=== PATIENT | male | born 1950 | race Two or more races ===

== ENCOUNTER 2023-08-26 16:08 | Inpatient (IN) | payer MEDICARE, MEDICAID ==
[~2023-08-26] VITALS: Ht 175.3 cm; Wt 64.1 kg
[2023-08-26] MEDS ORDERED: SODIUM CHLORIDE 0.9% 1,000 ML IV ONE ×2 (17:00)
[2023-08-26 17:18] LABS: BASOPHILS % (AUTO) 0.3 % (0.0-2.0); EOSINOPHILS % (AUTO) 1.2 % (1.0-6.0); HEMATOCRIT 34.9 % (41-53); HEMOGLOBIN 11.9 g/dL (13.5-17.5); LYMPHOCYTES # (AUTO) 0.9 K/uL (1.0-4.8); LYMPHOCYTES % (AUTO) 18.4 % (22.0-44.0); MEAN CORPUSCULAR HEMOGLOBIN 33.5 pg (26.0-34.0); MEAN CORPUSCULAR VOLUME 99 fL (80-100); MONOCYTES # (AUTO) 0.3 K/uL (0.1-1.0); MONOCYTES % (AUTO) 5.7 % (2.0-9.0); NEUTROPHILS # (AUTO) 3.8 K/uL (1.8-7.7); NEUTROPHILS % (AUTO) 74.4 % (40.0-70.0); PLATELET COUNT (AUTO) 132 K/uL (150-450); RED BLOOD CELL COUNT(AUTO) 3.54 MIL/uL (4.50-5.90); WHITE BLOOD COUNT (AUTO) 5.1 K/uL (4.5-11.0)
[2023-08-26 17:27] LABS: CALCIUM, TOTAL 9.3 mg/dL (8.8-10.5); CARBON DIOXIDE 28 mmol/L (22-29); CHLORIDE 102 mmol/L (98-107); GLOMERULAR FILTR. RATE CALC > 60 mL/min (>60); GLUCOSE,RANDOM 97 mg/dL (70-110); UREA NITROGEN, BLOOD 19 mg/dL (7-18)
[2023-08-26] MEDS ORDERED: ACETAMINOPHEN 325 MG TABLET PO PRN (17:30)
[2023-08-26] MEDS ORDERED: MAGNESIUM HYDROXIDE SUSPENSION 30 ML UDCUP PO PRN (17:30)
[2023-08-26 17:32] LABS: B-TYPE NATRIURETIC PEPTIDE 74 pg/mL (0-100)
[2023-08-26 17:33] LABS: ALANINE AMINOTRANSFERASE 24 U/L (12-78); ALBUMIN 3.6 g/dL (3.4-5.0); ALKALINE PHOSPHATASE 75 U/L (46-116); ASPARTATE AMINOTRANSFERASE 17 U/L (15-37); BILIRUBIN,TOTAL 0.6 mg/dL (0.1-1.0); LIPASE 38 U/L (16-77); TOTAL PROTEIN, SERUM 6.9 g/dL (6.4-8.2)
[2023-08-26 17:35] LABS: LACTIC ACID 0.6 mmol/L (0.4-2.0); TROPONIN I-HIGH SENSITIVITY 74 ng/L (<76)
[2023-08-26 17:36] LABS: COVID AG,FIA SOURCE NASAL SWAB
[2023-08-26 17:42] LABS: ANION GAP 8 mmol/L (8-16); SODIUM SERUM 138 mmol/L (136-145)
[2023-08-26 17:52] LABS: SARS-COV2 (COVID) ANTIGEN,FIA Negative (Negative)
[2023-08-26] MEDS: FAMOTIDINE 20 MG TABLET PO SCH (21:00)
[2023-08-26 21:42] VITALS: BP 123/77; PULSE 85; RESP 20; TEMP 98.2
[2023-08-27] VITALS (7 sets, daily range): BP systolic 105–128; BP diastolic 66–76; PULSE 65–87; RESP 16–19; TEMP 97.6–98.4
[2023-08-27] MEDS: HEPARIN SODIUM,PORCINE 5,000 UNITS/ML VIAL SQ SCH ×3 (00:11→16:13)
[2023-08-27 00:38] LABS: APPEARANCE,URINE CLEAR (CLEAR); BILIRUBIN,URINE NEGATIVE (NEGATIVE); COLOR,URINE LIGHT YELLOW (YELLOW); GLUCOSE, URINE (UA) NEGATIVE (NEGATIVE); KETONES,URINE NEGATIVE (NEGATIVE); LEUKOCYTE ESTERASE ,URINE NEGATIVE (NEGATIVE); NITRATE,URINE NEGATIVE (NEGATIVE); OCCULT BLOOD,URINE NEGATIVE (NEGATIVE); PH,URINE 6.5 (5.0-8.0); PROTEIN,URINE NEGATIVE (NEGATIVE); SPECIFIC GRAVITIY, URINE 1.013 (1.003-1.030); UROBILINOGEN,URINE <=1.0 mg/dL (<=1.0)
[2023-08-27] MEDS: FAMOTIDINE 20 MG TABLET PO SCH ×2 (08:31→20:00)
[2023-08-27] MEDS: ASPIRIN 81 MG CHEWABLE TABLET PO SCH (08:31)
[2023-08-28] MEDS: HEPARIN SODIUM,PORCINE 5,000 UNITS/ML VIAL SQ SCH ×3 (00:40→16:07)
[2023-08-28 05:07] VITALS: BP 130/77; PULSE 85; RESP 18; TEMP 98.2
[2023-08-28 07:26] VITALS: BP 123/79; PULSE 85; RESP 20; TEMP 97.5
[2023-08-28] MEDS: FAMOTIDINE 20 MG TABLET PO SCH (08:18)
[2023-08-28] MEDS: ASPIRIN 81 MG CHEWABLE TABLET PO SCH (08:19)
[2023-08-28 16:16] VITALS: BP 121/76; PULSE 86; RESP 20; TEMP 98.4
== END 2023-08-28 17:17 | disposition home or self-care (01) | DRG 315 ==
LOC: EMS 16:10 → 5S 18:26 → 6S 08-27 20:46
PROVIDERS: ADMIT Internal Medicine; ATTEND Internal Medicine
DX: I95.9 Hypotension, unspecified (principal); E44.0 Moderate protein-calorie malnutrition; T50.995A Adverse effect of other drugs, medicaments and biological substances, initial encounter; F03.90 Unspecified dementia, unspecified severity, without behavioral disturbance, psychotic disturbance, mood disturbance, and anxiety; Z20.822 Contact with and (suspected) exposure to COVID-19; R62.7 Adult failure to thrive; Z95.0 Presence of cardiac pacemaker; Z68.20 Body mass index [BMI] 20.0-20.9, adult
CPT/HCPCS: 70450; 71045; 80053; 81003; 83605; 83690; 83880; 84484; 85025; 87040; 93005; 97116; 97162; 99285; J1644; 36415-L1; 36415-TC

== ENCOUNTER 2023-08-28 21:09 | Inpatient (IN) | payer MEDICARE, MEDICAID ==
[~2023-08-28] VITALS: Ht 172.7 cm; Wt 62.0 kg
[2023-08-28] MEDS ORDERED: LORazepam 2 MG/ML VIAL IVP ONE (22:00)
[2023-08-28] MEDS ORDERED: 0.9% SODIUM CHLORIDE 10 ML SYRINGE IVP PRN (22:15)
[2023-08-28 22:42] LABS: BASOPHILS % (AUTO) 0.1 % (0.0-2.0); EOSINOPHILS % (AUTO) 0.3 % (1.0-6.0); HEMOGLOBIN 10.9 g/dL (13.5-17.5); LYMPHOCYTES # (AUTO) 1.3 K/uL (1.0-4.8); LYMPHOCYTES % (AUTO) 19.7 % (22.0-44.0); MEAN CORPUSCULAR HEMOGLOBIN 33.4 pg (26.0-34.0); MEAN CORPUSCULAR HGB CONC 33.9 G/dL (31.0-37.0); MEAN CORPUSCULAR VOLUME 98 fL (80-100); MONOCYTES # (AUTO) 0.5 K/uL (0.1-1.0); MONOCYTES % (AUTO) 7.8 % (2.0-9.0); NEUTROPHILS # (AUTO) 4.6 K/uL (1.8-7.7); NEUTROPHILS % (AUTO) 72.1 % (40.0-70.0); PLATELET COUNT (AUTO) 130 K/uL (150-450); RED BLOOD CELL COUNT(AUTO) 3.26 MIL/uL (4.50-5.90); RED CELL DISTRIBUTION WIDTH 12.9 % (11.5-14.5); WHITE BLOOD COUNT (AUTO) 6.4 K/uL (4.5-11.0)
[2023-08-28 22:48] LABS: ANION GAP 10 mmol/L (8-16); CALCIUM, TOTAL 9.4 mg/dL (8.8-10.5); CARBON DIOXIDE 25 mmol/L (22-29); CHLORIDE 104 mmol/L (98-107); CREATININE 1.18 mg/dL (0.60-1.30); GLOMERULAR FILTR. RATE CALC > 60 mL/min (>60); GLUCOSE,RANDOM 96 mg/dL (70-110); POTASSIUM 3.1 mmol/L (3.5-5.1); SODIUM SERUM 139 mmol/L (136-145); UREA NITROGEN, BLOOD 22 mg/dL (7-18)
[2023-08-28 22:53] LABS: B-TYPE NATRIURETIC PEPTIDE 132 pg/mL (0-100)
[2023-08-28 22:55] LABS: ALANINE AMINOTRANSFERASE 26 U/L (12-78); ALBUMIN 3.4 g/dL (3.4-5.0); ALKALINE PHOSPHATASE 71 U/L (46-116); ASPARTATE AMINOTRANSFERASE 22 U/L (15-37); BILIRUBIN,TOTAL 0.7 mg/dL (0.1-1.0); CREATINE KINASE, TOTAL ONLY 172 U/L (39-308); TOTAL PROTEIN, SERUM 6.8 g/dL (6.4-8.2)
[2023-08-28 22:56] LABS: LACTIC ACID 1.9 mmol/L (0.4-2.0); TROPONIN I-HIGH SENSITIVITY 68 ng/L (<76)
[2023-08-28] MEDS ORDERED: HALOPERIDOL 5 MG TABLET PO ONE (23:30)
[2023-08-29] MEDS ORDERED: CefTRIAXone 1 GM/DEXTROSE 50 ML IV ONE
[2023-08-29] MEDS ORDERED: SODIUM CHLORIDE 0.9% 500 ML IV ONE
[2023-08-29] MEDS ORDERED: POTASSIUM CHLORIDE 10% 40 MEQ/30 ML LIQUID UDCUP PO ONE
[2023-08-29] MEDS ORDERED: ONDANSETRON HCL 4 MG/2 ML VIAL IVP PRN
[2023-08-29] MEDS ORDERED: SODIUM CHLORIDE 0.9% 100 ML ONE (00:12)
[2023-08-29] MEDS ORDERED: IOHEXOL 350 MG/ML 100 ML VIAL ONE (00:12)
[2023-08-29] MEDS ORDERED: MAGNESIUM SULFATE 4 GM/WATER 100 ML IV PRN (00:15)
[2023-08-29] MEDS ORDERED: POTASSIUM CHL 10 MEQ/WATER 50 ML IV PRN (00:15)
[2023-08-29] MEDS ORDERED: POTASSIUM CHLORIDE 20 MEQ ER TABLET PO PRN (00:15)
[2023-08-29] MEDS ORDERED: MAGNESIUM SULFATE 2 GM/WATER 50 ML IV PRN (00:15)
[2023-08-29] MEDS ORDERED: MAGNESIUM OXIDE 400 MG TABLET PO PRN (00:15)
[2023-08-29] MEDS: RINGERS SOLUTION,LACTATED 1,000 ML IV SCH ×2 (00:34→17:48)
[2023-08-29] MEDS: HEPARIN SODIUM,PORCINE 5,000 UNITS/ML VIAL SQ SCH ×2 (00:35→08:00)
[2023-08-29 01:07] LABS: % IRON SATURATION 26.4 % (30-44)
[2023-08-29 02:20] VITALS: BP 110/69; PULSE 85; RESP 18; TEMP 97.8
[2023-08-29] MEDS: AZITHROMYCIN 500 MG/NS 250 ML IV SCH (02:42)
[2023-08-29 06:34] LABS: TROPONIN I-HIGH SENSITIVITY 65 ng/L (<76)
[2023-08-29 07:25] VITALS: BP 132/89; PULSE 86; RESP 20; TEMP 97.3
[2023-08-29 07:49] LABS: COVID AG,FIA SOURCE NASAL SWAB
[2023-08-29 08:27] LABS: SARS-COV2 (COVID) ANTIGEN,FIA Negative (Negative)
[2023-08-29] MEDS: DOCUSATE SODIUM 100 MG CAPSULE PO SCH ×2 (09:00→20:28)
[2023-08-29 09:28] LABS: TROPONIN I-HIGH SENSITIVITY 66 ng/L (<76)
[2023-08-29 15:15] VITALS: BP 127/91; PULSE 85; RESP 20; TEMP 97.5
[2023-08-29 16:31] LABS: INR 1.1 (0.9-1.1); PROTHROMBIN TIME 11.7 SEC (9.4-11.6)
[2023-08-29 19:45] VITALS: BP 124/80; PULSE 86; RESP 20; TEMP 97.6
[2023-08-29] MEDS: MELATONIN 3 MG TABLET PO PRN (22:03)
[2023-08-30] MEDS: AZITHROMYCIN 500 MG/NS 250 ML IV SCH ×2 (00:40→23:57)
[2023-08-30 05:00] VITALS: BP 122/84; PULSE 85; RESP 18; TEMP 98.7
[2023-08-30] MEDS: DOCUSATE SODIUM 100 MG CAPSULE PO SCH ×2 (09:00→20:22)
[2023-08-30] MEDS: HALOPERIDOL LACTATE 5 MG/ML VIAL IM PRN ×2 (09:33→23:59)
[2023-08-30 10:25] VITALS: BP 120/77; PULSE 86; RESP 20; TEMP 98
[2023-08-30] MEDS: ETHYL ALCOHOL 62% ANTISEPTIC NASAL SANITIZER 0.6 ML AMPUL NASAL SCH ×2 (10:46→19:47)
[2023-08-30] MEDS: BREXPIPRAZOLE 1 MG TABLET PO SCH (12:18)
[2023-08-30 15:26] VITALS: BP 123/81; PULSE 86; RESP 20; TEMP 98.3
[2023-08-30] MEDS: RINGERS SOLUTION,LACTATED 1,000 ML IV SCH ×2 (17:14→17:19)
[2023-08-30 19:21] VITALS: BP 128/77; PULSE 85; RESP 18; TEMP 98.3
[2023-08-30] MEDS: MELATONIN 3 MG TABLET PO PRN (19:43)
[2023-08-30] MEDS: ACETAMINOPHEN 325 MG TABLET PO PRN (19:43)
[2023-08-31 05:26] VITALS: BP 117/73; PULSE 72; RESP 18; TEMP 98.1
[2023-08-31 06:43] LABS: BASOPHILS % (AUTO) 0.2 % (0.0-2.0); EOSINOPHILS % (AUTO) 1.4 % (1.0-6.0); HEMATOCRIT 32.8 % (41-53); HEMOGLOBIN 11.4 g/dL (13.5-17.5); LYMPHOCYTES # (AUTO) 1.4 K/uL (1.0-4.8); MEAN CORPUSCULAR HEMOGLOBIN 33.8 pg (26.0-34.0); MEAN CORPUSCULAR HGB CONC 34.7 G/dL (31.0-37.0); MEAN CORPUSCULAR VOLUME 97 fL (80-100); MONOCYTES # (AUTO) 0.4 K/uL (0.1-1.0); MONOCYTES % (AUTO) 8.1 % (2.0-9.0); NEUTROPHILS # (AUTO) 3.5 K/uL (1.8-7.7); NEUTROPHILS % (AUTO) 64.3 % (40.0-70.0); PLATELET COUNT (AUTO) 136 K/uL (150-450); RED BLOOD CELL COUNT(AUTO) 3.37 MIL/uL (4.50-5.90); RED CELL DISTRIBUTION WIDTH 13.1 % (11.5-14.5); WHITE BLOOD COUNT (AUTO) 5.4 K/uL (4.5-11.0)
[2023-08-31 07:04] LABS: ANION GAP 9 mmol/L (8-16); CALCIUM, TOTAL 9.3 mg/dL (8.8-10.5); CARBON DIOXIDE 27 mmol/L (22-29); CHLORIDE 106 mmol/L (98-107); CREATININE 0.78 mg/dL (0.60-1.30); GLOMERULAR FILTR. RATE CALC > 60 mL/min (>60); GLUCOSE,RANDOM 89 mg/dL (70-110); POTASSIUM 3.4 mmol/L (3.5-5.1); SODIUM SERUM 142 mmol/L (136-145); UREA NITROGEN, BLOOD 9 mg/dL (7-18)
[2023-08-31 08:13] VITALS: BP 123/75; PULSE 76; RESP 20; TEMP 98
[2023-08-31] MEDS: BREXPIPRAZOLE 1 MG TABLET PO SCH (09:06)
[2023-08-31] MEDS: ETHYL ALCOHOL 62% ANTISEPTIC NASAL SANITIZER 0.6 ML AMPUL NASAL SCH ×2 (09:06→19:57)
[2023-08-31] MEDS: DOCUSATE SODIUM 100 MG CAPSULE PO SCH ×2 (09:06→19:56)
[2023-08-31] MEDS: RINGERS SOLUTION,LACTATED 1,000 ML IV SCH ×2 (09:09→18:40)
[2023-08-31 15:30] VITALS: BP 114/68; PULSE 85; RESP 20; TEMP 98.4
[2023-08-31 19:30] VITALS: BP 105/71; PULSE 86; RESP 20; TEMP 98.3
[2023-08-31] MEDS: MELATONIN 3 MG TABLET PO PRN (19:56)
[2023-08-31] MEDS: ACETAMINOPHEN 325 MG TABLET PO PRN (19:57)
[2023-08-31] MEDS: HALOPERIDOL LACTATE 5 MG/ML VIAL IM PRN (23:16)
[2023-09-01] MEDS: AZITHROMYCIN 500 MG/NS 250 ML IV SCH (00:13)
[2023-09-01 04:00] VITALS: BP 136/84; PULSE 87; RESP 20; TEMP 98.6
[2023-09-01 07:22] LABS: ANION GAP 9 mmol/L (8-16); CALCIUM, TOTAL 9.2 mg/dL (8.8-10.5); CARBON DIOXIDE 28 mmol/L (22-29); CHLORIDE 104 mmol/L (98-107); GLOMERULAR FILTR. RATE CALC > 60 mL/min (>60); GLUCOSE,RANDOM 98 mg/dL (70-110); POTASSIUM 3.3 mmol/L (3.5-5.1); SODIUM SERUM 141 mmol/L (136-145); UREA NITROGEN, BLOOD 8 mg/dL (7-18)
[2023-09-01] MEDS: ETHYL ALCOHOL 62% ANTISEPTIC NASAL SANITIZER 0.6 ML AMPUL NASAL SCH ×2 (08:37→19:44)
[2023-09-01] MEDS: BREXPIPRAZOLE 1 MG TABLET PO SCH (08:37)
[2023-09-01] MEDS: DOCUSATE SODIUM 100 MG CAPSULE PO SCH ×2 (08:37→19:44)
[2023-09-01] MEDS: RINGERS SOLUTION,LACTATED 1,000 ML IV SCH (08:43)
[2023-09-01 15:22] VITALS: BP 126/89; PULSE 97; RESP 18
[2023-09-01 19:33] VITALS: BP 115/71; PULSE 86; RESP 20; TEMP 97.8
[2023-09-01] MEDS: ACETAMINOPHEN 325 MG TABLET PO PRN (19:44)
[2023-09-01] MEDS: MELATONIN 3 MG TABLET PO PRN (19:44)
[2023-09-02] MEDS: AZITHROMYCIN 500 MG/NS 250 ML IV SCH (00:04)
[2023-09-02] MEDS: RINGERS SOLUTION,LACTATED 1,000 ML IV SCH ×2 (00:05→11:28)
[2023-09-02 04:10] VITALS: BP 134/85; PULSE 86; RESP 18; TEMP 98.6
[2023-09-02 08:15] VITALS: BP 147/69; PULSE 94; RESP 19; TEMP 98.9
[2023-09-02] MEDS: MULTIVITAMINS, THERAPEUTIC TABLET PO SCH ×2 (08:58→09:00)
[2023-09-02] MEDS: BREXPIPRAZOLE 1 MG TABLET PO SCH ×2 (08:58→09:00)
[2023-09-02] MEDS: DOCUSATE SODIUM 100 MG CAPSULE PO SCH ×2 (08:58→09:00)
[2023-09-02] MEDS: ETHYL ALCOHOL 62% ANTISEPTIC NASAL SANITIZER 0.6 ML AMPUL NASAL SCH ×2 (08:59→09:00)
== END 2023-09-02 13:35 | DRG 193 ==
LOC: EMS 21:10 → 6S 08-29 01:00 → 6N 08-31 20:23 → 6S 09-01 17:37
PROVIDERS: ADMIT Internal Medicine; ATTEND Internal Medicine
DX: J18.9 Pneumonia, unspecified organism (principal); G93.41 Metabolic encephalopathy; R65.10 Systemic inflammatory response syndrome (SIRS) of non-infectious origin without acute organ dysfunction; E44.0 Moderate protein-calorie malnutrition; F03.A11 Unspecified dementia, mild, with agitation; F03.918 Unspecified dementia, unspecified severity, with other behavioral disturbance; E87.6 Hypokalemia; F29 Unspecified psychosis not due to a substance or known physiological condition; Z20.822 Contact with and (suspected) exposure to COVID-19; D64.9 Anemia, unspecified; R00.0 Tachycardia, unspecified; R09.02 Hypoxemia; R62.7 Adult failure to thrive; Z95.0 Presence of cardiac pacemaker; Z68.20 Body mass index [BMI] 20.0-20.9, adult
CPT/HCPCS: 71045; 71275; 80048; 80053; 82040; 82550; 83540; 83550; 83605; 83735; 83880; 84132; 84145; 84484; 85025; 85045; 85610; 87040; 87081; 92526; 92610; 93005; 97116; 97162; 97530; 99291; J0456; J0696; J1630; J1644; J2060; J7040; J7050; J7120; Q9967; 36415-L1; 36415-TC

== ENCOUNTER 2024-09-09 12:01 | Inpatient (IN) | payer MEDICARE, OTHER ==
[~2024-09-09] VITALS: Ht 170.2 cm; Wt 78.2 kg
[2024-09-09] MEDS ORDERED: 0.9% SODIUM CHLORIDE 10 ML SYRINGE IVP PRN (13:00)
[2024-09-09] MEDS: CefTRIAXone 1 GM/DEXTROSE 50 ML IV ONE (13:25)
[2024-09-09] MEDS: SODIUM CHLORIDE 0.9% 1,550 ML IV ONE (13:25)
[2024-09-09 13:31] LABS: BASOPHILS % (AUTO) 0.7 % (0.0-2.0); EOSINOPHILS % (AUTO) 2.7 % (1.0-6.0); HEMATOCRIT 36.1 % (41-53); HEMOGLOBIN 12.3 g/dL (13.5-17.5); LYMPHOCYTES # (AUTO) 1.6 K/uL (1.0-4.8); LYMPHOCYTES % (AUTO) 25.8 % (22.0-44.0); MEAN CORPUSCULAR HEMOGLOBIN 33.1 pg (26.0-34.0); MEAN CORPUSCULAR HGB CONC 34.1 G/dL (31.0-37.0); MEAN CORPUSCULAR VOLUME 97 fL (80-100); MONOCYTES # (AUTO) 0.5 K/uL (0.1-1.0); MONOCYTES % (AUTO) 7.7 % (2.0-9.0); NEUTROPHILS # (AUTO) 3.8 K/uL (1.8-7.7); NEUTROPHILS % (AUTO) 63.1 % (40.0-70.0); PLATELET COUNT (AUTO) 165 K/uL (150-450); RED BLOOD CELL COUNT(AUTO) 3.72 MIL/uL (4.50-5.90); RED CELL DISTRIBUTION WIDTH 13.2 % (11.5-14.5); WHITE BLOOD COUNT (AUTO) 6.1 K/uL (4.5-11.0)
[2024-09-09 13:40] LABS: ANION GAP 11 mmol/L (8-16); CALCIUM, TOTAL 8.8 mg/dL (8.8-10.5); CARBON DIOXIDE 24 mmol/L (22-29); CHLORIDE 103 mmol/L (98-107); CREATININE 0.87 mg/dL (0.60-1.30); GLOMERULAR FILTR. RATE CALC > 60 mL/min (>60); GLUCOSE,RANDOM 83 mg/dL (70-110); POTASSIUM 3.8 mmol/L (3.5-5.1); SODIUM SERUM 138 mmol/L (136-145); UREA NITROGEN, BLOOD 28 mg/dL (7-18)
[2024-09-09 13:41] LABS: PROTHROMBIN TIME 11.7 SEC (9.4-11.6)
[2024-09-09 13:46] LABS: ALANINE AMINOTRANSFERASE 14 U/L (12-78); ALBUMIN 3.4 g/dL (3.4-5.0); ALKALINE PHOSPHATASE 89 U/L (46-116); ASPARTATE AMINOTRANSFERASE 16 U/L (15-37); BILIRUBIN,TOTAL 0.4 mg/dL (0.1-1.0); TOTAL PROTEIN, SERUM 7.5 g/dL (6.4-8.2)
[2024-09-09 13:48] LABS: LACTIC ACID 1.9 mmol/L (0.4-2.0)
[2024-09-09 14:21] LABS: APPEARANCE,URINE HAZY (CLEAR); BILIRUBIN,URINE NEGATIVE (NEGATIVE); COLOR,URINE LIGHT YELLOW (YELLOW); GLUCOSE, URINE (UA) NEGATIVE (NEGATIVE); KETONES,URINE NEGATIVE (NEGATIVE); LEUKOCYTE ESTERASE ,URINE LARGE (NEGATIVE); NITRATE,URINE NEGATIVE (NEGATIVE); OCCULT BLOOD,URINE SMALL (NEGATIVE); PROTEIN,URINE NEGATIVE (NEGATIVE); SPECIFIC GRAVITIY, URINE 1.016 (1.003-1.030); UROBILINOGEN,URINE <=1.0 mg/dL (<=1.0)
[2024-09-09 14:47] LABS: BACTERIA,URINE Moderate /HPF (None Seen); SQUAMOUS EPITHELIAL CELL,UR Few /LPF (None Seen); WBC,URINE 51-100 /HPF (0-5)
[2024-09-09] MEDS ORDERED: ACETAMINOPHEN 325 MG TABLET PO PRN (16:00)
[2024-09-09] MEDS: HEPARIN SODIUM,PORCINE 5,000 UNITS/ML VIAL SQ SCH (16:05)
[2024-09-09] MEDS: TAMSULOSIN HCL 0.4 MG CAPSULE PO SCH (16:05)
[2024-09-09] MEDS: LORazepam 2 MG/ML VIAL IVP ONE (16:43)
[2024-09-09] MEDS: PIPERACILLIN/TAZO 3.375 GM/D5W 50 ML IV SCH (19:21)
[2024-09-09] MEDS: HALOPERIDOL LACTATE 5 MG/ML VIAL IM ONE (20:20)
[2024-09-09] MEDS: DOCUSATE SODIUM 100 MG CAPSULE PO SCH (20:21)
[2024-09-09] MEDS: LORazepam 2 MG/ML VIAL IM ONE (20:33)
[2024-09-10 04:00] VITALS: BP 119/65; PULSE 81; RESP 18; TEMP 97.8; O2SAT 100
[2024-09-10] MEDS ORDERED: QUEtiapine FUMARATE 25 MG TABLET PO ONE (06:15)
[2024-09-10] MEDS ORDERED: LORazepam 2 MG/ML VIAL IVP ONE (06:15)
[2024-09-10 07:05] LABS: BASOPHILS % (AUTO) 0.3 % (0.0-2.0); EOSINOPHILS % (AUTO) 2.3 % (1.0-6.0); HEMATOCRIT 32.2 % (41-53); LYMPHOCYTES # (AUTO) 1.2 K/uL (1.0-4.8); LYMPHOCYTES % (AUTO) 21.5 % (22.0-44.0); MEAN CORPUSCULAR HEMOGLOBIN 33.4 pg (26.0-34.0); MEAN CORPUSCULAR HGB CONC 34.2 G/dL (31.0-37.0); MEAN CORPUSCULAR VOLUME 98 fL (80-100); MONOCYTES # (AUTO) 0.4 K/uL (0.1-1.0); MONOCYTES % (AUTO) 6.4 % (2.0-9.0); NEUTROPHILS % (AUTO) 69.5 % (40.0-70.0); PLATELET COUNT (AUTO) 144 K/uL (150-450); RED CELL DISTRIBUTION WIDTH 13.5 % (11.5-14.5); WHITE BLOOD COUNT (AUTO) 5.7 K/uL (4.5-11.0)
[2024-09-10 07:25] LABS: ANION GAP 10 mmol/L (8-16); CALCIUM, TOTAL 8.4 mg/dL (8.8-10.5); CARBON DIOXIDE 24 mmol/L (22-29); CHLORIDE 104 mmol/L (98-107); CREATININE 0.83 mg/dL (0.60-1.30); GLOMERULAR FILTR. RATE CALC > 60 mL/min (>60); GLUCOSE,RANDOM 82 mg/dL (70-110); POTASSIUM 3.8 mmol/L (3.5-5.1); SODIUM SERUM 138 mmol/L (136-145); UREA NITROGEN, BLOOD 20 mg/dL (7-18)
[2024-09-10 07:28] VITALS: BP 112/89; PULSE 75; RESP 17; TEMP 98.4; O2SAT 91
[2024-09-10] MEDS ORDERED: SODIUM CHLORIDE 0.9% 500 ML IV ONE (11:25)
[2024-09-10] MEDS ORDERED: MAGNESIUM SULFATE 2 GM/WATER 50 ML IV PRN (14:00)
[2024-09-10] MEDS ORDERED: MAGNESIUM SULFATE 4 GM/WATER 100 ML IV PRN (14:00)
[2024-09-10] MEDS: MAGNESIUM OXIDE 400 MG TABLET PO PRN (14:32)
[2024-09-10 15:25] VITALS: BP 109/69; PULSE 75; RESP 18; TEMP 97.6; O2SAT 100
[2024-09-10 19:35] VITALS: BP 112/67; PULSE 75; RESP 20; TEMP 98; O2SAT 97
[2024-09-10] MEDS: HALOPERIDOL LACTATE 5 MG/ML VIAL IM PRN (20:19)
[2024-09-11 04:34] VITALS: BP 121/68; PULSE 75; RESP 18; TEMP 98.2; O2SAT 97
[2024-09-11 06:50] LABS: GLUCOMETER DEV NAME(LOC) 6S.2; GLUCOSE,POINT OF CARE 97 MG/DL (70-110)
[2024-09-11 07:15] VITALS: BP 118/77; PULSE 75; RESP 18; TEMP 98; O2SAT 94
[2024-09-11 08:12] LABS: BASOPHILS % (AUTO) 0.4 % (0.0-2.0); EOSINOPHILS % (AUTO) 2.8 % (1.0-6.0); HEMATOCRIT 33.3 % (41-53); HEMOGLOBIN 11.4 g/dL (13.5-17.5); LYMPHOCYTES # (AUTO) 1.1 K/uL (1.0-4.8); LYMPHOCYTES % (AUTO) 23.1 % (22.0-44.0); MEAN CORPUSCULAR HEMOGLOBIN 33.3 pg (26.0-34.0); MEAN CORPUSCULAR HGB CONC 34.4 G/dL (31.0-37.0); MEAN CORPUSCULAR VOLUME 97 fL (80-100); MONOCYTES # (AUTO) 0.4 K/uL (0.1-1.0); MONOCYTES % (AUTO) 8.6 % (2.0-9.0); NEUTROPHILS # (AUTO) 3.1 K/uL (1.8-7.7); NEUTROPHILS % (AUTO) 65.1 % (40.0-70.0); PLATELET COUNT (AUTO) 146 K/uL (150-450); RED BLOOD CELL COUNT(AUTO) 3.43 MIL/uL (4.50-5.90); RED CELL DISTRIBUTION WIDTH 13.5 % (11.5-14.5); WHITE BLOOD COUNT (AUTO) 4.7 K/uL (4.5-11.0)
[2024-09-11] MEDS: QUEtiapine FUMARATE 25 MG TABLET PO SCH (08:17)
[2024-09-11 08:21] LABS: ANION GAP 11 mmol/L (8-16); CALCIUM, TOTAL 8.5 mg/dL (8.8-10.5); CARBON DIOXIDE 23 mmol/L (22-29); CHLORIDE 104 mmol/L (98-107); CREATININE 0.93 mg/dL (0.60-1.30); GLOMERULAR FILTR. RATE CALC > 60 mL/min (>60); GLUCOSE,RANDOM 99 mg/dL (70-110); POTASSIUM 3.9 mmol/L (3.5-5.1); SODIUM SERUM 138 mmol/L (136-145); UREA NITROGEN, BLOOD 17 mg/dL (7-18)
[2024-09-11] MEDS: LEVOFLOXACIN 750 MG/D5% WATER 150 ML IV ONE (10:29)
[2024-09-11] MEDS ORDERED: QUET100T34 PO (11:01)
[2024-09-11] MEDS ORDERED: ESCI20TA37 PO (11:01)
[2024-09-11] MEDS: MELATONIN 3 MG TABLET PO ONE (12:40)
[2024-09-11] MEDS: ESCITALOPRAM OXALATE 20 MG TABLET PO SCH (12:41)
[2024-09-11] MEDS ORDERED: TAMS0.4C94 PO (12:50)
[2024-09-11] MEDS ORDERED: LEVO-72 PO (12:51)
[2024-09-11 15:22] VITALS: BP 102/62; PULSE 75; RESP 19; TEMP 98.4; O2SAT 95
[2024-09-11] MEDS: HALOPERIDOL LACTATE 5 MG/ML VIAL IM ONE (16:17)
[2024-09-11 19:20] VITALS: BP 107/65; PULSE 75; RESP 18; TEMP 98.4; O2SAT 96
[2024-09-11] MEDS: QUEtiapine FUMARATE 100 MG TABLET PO SCH (22:36)
[2024-09-12 04:53] VITALS: BP 108/68; PULSE 75; RESP 18; TEMP 98.7; O2SAT 99
[2024-09-12] MEDS: QUEtiapine FUMARATE 25 MG TABLET PO SCH (08:36)
[2024-09-12 09:21] VITALS: BP 103/56; PULSE 75; RESP 18; TEMP 97; O2SAT 96
[2024-09-12] MEDS: ONDANSETRON HCL 4 MG/2 ML VIAL IVP PRN (13:04)
== END 2024-09-12 20:02 | DRG 689 ==
LOC: EMS 12:01 → EDH 15:54 → 6S 09-10 03:15
PROVIDERS: ADMIT Internal Medicine; ATTEND Internal Medicine
DX: N39.0 Urinary tract infection, site not specified (principal); G93.41 Metabolic encephalopathy; I50.30 Unspecified diastolic (congestive) heart failure; F01.50 Vascular dementia, unspecified severity, without behavioral disturbance, psychotic disturbance, mood disturbance, and anxiety; I48.91 Unspecified atrial fibrillation; I69.391 Dysphagia following cerebral infarction; F41.9 Anxiety disorder, unspecified
CPT/HCPCS: 70450; 71045; 80048; 80053; 81001; 82040; 82962; 83605; 83735; 84145; 85025; 85610; 87040; 87077; 87086; 87186; 93005; 99285; G0378; J0696; J1630; J1644; J1956; J2060; J2405; J2543; J7030; J7040; 36415-L1; 36415-TC